=== PATIENT | female | born 1960 | race Caucasian/White ===

== ENCOUNTER 2018-02-27 10:27 | Inpatient (IN) ==
[2018-02-27] MEDS ORDERED: 0.9 % Sodium Chloride 1,000 ML IVC ONE (10:33)
[2018-02-27] MEDS ORDERED: Isovue-370 500 ML INFUS..BTL IV ONE (10:45)
--- NOTE | 2018-02-27 11:01 | Emergency Department Note ---
Disposition Clinical Impression: Diverticulitis large intestine Qualifiers: Diverticulitis bleeding: unspecified bleeding status Diverticulitis complication: without perforation or abscess Qualified Code(s): K57.32 - Diverticulitis of large intestine without perforation or abscess without bleeding Disposition: Admitted As Inpatient Condition: Fair Referrals: Cherelle Burrows MD [Primary Care Provider] - Time of Disposition: 12:22 Nausea/Vomiting/Diarrhea HPI - General Chief complaint: ED Nausea/Vomiting/Diarrhea Stated complaint: Dehydration Time Seen by Provider: 02/27/18 10:31 Source: patient Mode of arrival: ambulatory Limitations: no limitations Nursing Notes Reviewed: Yes Vital Signs Reviewed: Yes - History of Present Illness HPI Narrative: 57 year old obese white female with history of hypertension and hyperlipidemia presents for "diarrhea and dehydration". Patient states 5 days ago she thinks she ate something funny and gassy. 2 days later, gassiness worsened and started having diarrhea. After any oral intake, has crampy low abdominal pain and has bowel movement half an hour later. Yesterday patient had a large bowel movement that relieved pain from LLQ abdomen, pain is now restricted to the infraumbilical region. Today she woke up with chapped lips and feels dehydrated. She vomited this morning but does not believe it is related to her diarrhea, denies nausea. Patient reports fever of 101. She went to urgent care and got sent to the ED. Pain ranges from 0 to a 10 out of 10 and feels like a premenstrual cramp. Pain is relieved after making bowel movement. Patient has been sipping Gatorade, water, beef broth. Patient has no appetite and has not been taking any solid foods. Patient reports a 6 pound weight loss in the past 2 days. Reports urine is darker, denies blood in stool. Denies chills, swelling, numbness, tingling, headache, sore throat, cough. 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 Has had no recent hospitalizations or antibiotics. Has never had a colonoscopy. - Related Data Allergies Allergy/AdvReac Type Severity Reaction Status Date / Time sulfamethoxazole AdvReac Redness of Verified 12/09/15 12:54 [From Bactrim] Skin trimethoprim [From Bactrim] AdvReac Redness of Verified 12/09/15 12:54 Skin All systems ED: reviewed and negative except as stated. Past Medical History - Past Medical History Medical history: Reports: hyperlipidemia, hypertension Psychiatric history: Reports: no psych history - Social History Smoking Status: Never smoker Smokeless Tobacco Status: No Alcohol use: Reports: none Drug use: Reports: none Physical Exam - General Limitations: no limitations General appearance: alert, in no apparent distress - Eye Eye exam: Present: normal appearance, PERRL, EOMI - Neck Neck exam: Present: normal inspection, full ROM, trachea midline - Chest Chest inspection: Present: normal inspection, symmetric chest wall rise - Respiratory Respiratory exam: Present: normal lung sounds bilaterally. Absent: respiratory distress - Cardiovascular Cardiovascular exam: Present: regular rate, normal rhythm, normal heart sounds - Abdominal Exam Abdominal exam: Present: soft, tenderness, normal bowel sounds. Absent: distention, guarding, rebound, rigidity, bruit Abdominal tenderness: Present: suprapubic - Extremities Exam Extremities exam: Present: normal inspection, full ROM. Absent: tenderness, pedal edema - Neurological Exam Neurological exam: Present: alert, oriented X3, CN II-XII intact - Psychiatric Psychiatric exam: Present: normal affect, normal mood - Skin Skin exam: Present: warm, dry, intact, normal color Course Course Narrative: 57-year-old female presents for diarrhea, crampy low abdominal pain, and dehydration for 2 days. Worse with oral intake, better with bowel movement. Patient is alert and oriented and of nontoxic appearance. Afebrile, heart rate elevated 117. On exam, patient is tender to palpation over the suprapubic area. Will provide IV fluids. Will order sepsis workup and CT abdomen/pelvis and obtain stool sample. - Reevaluation(s) Reevaluation #1: WBC elevated 16.5. Otherwise, labwork negative. CT abd/pelvis reveals acute sigmoid diverticulitis, without perforation or abscess. Will start patient on Flagyl and Cipro, and admit patient. Spoke with hospitalist Dr. Atkins who agrees to admit. Time: 12:21 Vital Signs Temperature 98.2 F 02/27/18 10:28 Pulse Rate 127 02/27/18 10:28 Respiratory Rate 16 02/27/18 10:28 Blood Pressure 114/75 02/27/18 10:28 O2 Sat by Pulse Oximetry 96 02/27/18 10:28 Temperature 98.2 F 02/27/18 10:28 Pulse Rate 127 02/27/18 10:28 Respiratory Rate 16 02/27/18 10:28 Blood Pressure 114/75 02/27/18 10:28 O2 Sat by Pulse Oximetry 96 02/27/18 10:28 Oxygen Delivery Oxygen Delivery Room Air Nausea/Vomiting/Diarrhea - Medical Records Medical records reviewed: Yes I reviewed the patient's medical records. - Lab Data Lab results reviewed: Yes I reviewed the patient's lab results. - Radiology Data Radiology results reviewed: Yes I reviewed the patient's radiology results. CT abd/pelvis 02/27/2018 1. Findings consistent with acute sigmoid diverticulitis. No evidence of perforation. Follow-up to resolution is recommended to exclude an underlying mass. 2. Mildly prominent loops of small bowel in the left mid abdomen which is likely reactive in etiology. 3. Small amount of free fluid in the pelvis, likely reactive in etiology. Findings were discussed with Dr. Yeboah At 12:08 pm on 02/27/2018. - EKG Data EKG attestation: Yes I reviewed and interpreted this EKG. EKG results narrative: EKG 02/27/2018 10:51. Sinus rhythm. Heart rate 117. No ST segment elevation or depression. No comparison EKG.
[2018-02-27 11:04] LABS: Basophils % 0.2 %; Eosinophils # 0.3 K/mcL (0.0-0.6); Eosinophils % 1.7 %; Hematocrit 45.6 % (35.3-44.9); Immature Granulocytes % 0.4 % (0-4); Lymphocytes # 1.5 K/mcL (0.6-4.6); Mean Corpuscular HGB Conc 32.9 g/dL (31.6-35.5); Mean Corpuscular Hemoglobin 29.3 pg (28.0-33.3); Mean Corpuscular Volume 89.1 fL (83.0-100.0); Mean Platelet Volume 9.8 fL (9.4-12.4); Monocytes # 1.1 K/mcL (0.0-1.3); Monocytes % 6.6 %; Platelet Count 228 K/mcL (140-400); Red Blood Count 5.12 M/mcL (3.82-4.97); Red Cell Distribution Width 12.4 % (11.5-14.5); Segmented Neutrophils % 82.1 %
[2018-02-27 11:16] LABS: Neutrophils # 13.6 K/mcL (1.6-8.9)
[2018-02-27 11:22] LABS: INR 1.2
[2018-02-27 11:23] LABS: Alanine Aminotransferase 43 Units/L (7-52); Albumin 4.2 g/dL (3.5-5.7); Albumin/Globulin Ratio 1.2 (1.1-2.2); Alkaline Phosphatase 49 Units/L (34-104); Aspartate Amino Transferase 16 Units/L (13-39); BUN/Creatinine Ratio 33 (6-26); Bilirubin,Direct 0.3 mg/dL (0.0-0.2); Bilirubin,Indirect 0.4 mg/dL (0.0-1.2); Bilirubin,Total 0.7 mg/dL (0.3-1.0); Blood Urea Nitrogen 18 mg/dL (6-20); Calcium 10.4 mg/dL (8.6-10.3); Carbon Dioxide 18 mEq/L (23-29); Chloride 103 mEq/L (98-107); Globulin 3.4 g/dL (2.4-3.5); Glucose 115 mg/dL (70-105); Osmolality,Calculated 287 (280-300); Phosphorous 5.2 mg/dL (2.7-4.5); Potassium 4.3 mEq/L (3.5-5.1); Sodium 137 mEq/L (136-145); Total Protein 7.6 g/dL (6.4-8.9); Troponin I < 0.03 ng/mL (< 0.04); eGFR For Non-African Americans > 60 (> 60)
[2018-02-27 11:25] LABS: Activated Partial Thrombo Time 31.6 Seconds (26.0-36.0)
--- NOTE | 2018-02-27 11:49 | Emergency Department Note ---
Disposition Clinical Impression: Diarrhea Qualifiers: Diarrhea type: unspecified type Qualified Code(s): R19.7 - Diarrhea, unspecified Disposition: Still a Patient Forms: ED Satisfaction Letter General Adult HPI - General Chief complaint: ED Nausea/Vomiting/Diarrhea Stated complaint: Dehydration Time Seen by Provider: 02/27/18 10:31 Source: patient Mode of arrival: ambulatory Limitations: no limitations - History of Present Illness Pain Scale: 6 - Related Data Allergies Allergy/AdvReac Type Severity Reaction Status Date / Time sulfamethoxazole AdvReac Redness of Verified 12/09/15 12:54 [From Bactrim] Skin trimethoprim [From Bactrim] AdvReac Redness of Verified 12/09/15 12:54 Skin Past Medical History - Past Medical History Medical history: Reports: hyperlipidemia, hypertension Psychiatric history: Reports: no psych history - Social History Smoking Status: Never smoker Smokeless Tobacco Status: No Alcohol use: Reports: none Drug use: Reports: none Physical Exam - General Limitations: no limitations General appearance: alert, in no apparent distress Course Vital Signs Temperature 98.2 F 02/27/18 10:28 Pulse Rate 127 02/27/18 10:28 Respiratory Rate 16 02/27/18 10:28 Blood Pressure 114/75 02/27/18 10:28 O2 Sat by Pulse Oximetry 96 02/27/18 10:28 Temperature 98.2 F 02/27/18 10:28 Pulse Rate 127 02/27/18 10:28 Respiratory Rate 16 02/27/18 10:28 Blood Pressure 114/75 02/27/18 10:28 O2 Sat by Pulse Oximetry 96 02/27/18 10:28 Oxygen Delivery Oxygen Delivery Room Air Medical Decision Making - Lab Data Result diagrams: 02/27/18 10:49 02/27/18 10:49 Lab Results 02/27/18 02/27/18 02/27/18 Range/Units 10:49 10:49 10:49 WBC 16.5 H (4.3-11.1) K/mcL RBC 5.12 H (3.82-4.97) M/mcL Hgb 15.0 (11.5-15.4) g/dL Hct 45.6 H (35.3-44.9) % MCV 89.1 (83.0-100.0) fL MCH 29.3 (28.0-33.3) pg MCHC 32.9 (31.6-35.5) g/dL RDW 12.4 (11.5-14.5) % Plt Count 228 (140-400) K/mcL MPV 9.8 (9.4-12.4) fL Immature Gran % 0.4 (0-4) % Seg Neutrophils % 82.1 % Lymphocytes % 9.0 % Monocytes % 6.6 % Eosinophils % 1.7 % Basophils % 0.2 % Neutrophils # 13.6 H (1.6-8.9) K/mcL Lymphocytes # 1.5 (0.6-4.6) K/mcL Monocytes # 1.1 (0.0-1.3) K/mcL Eosinophils # 0.3 (0.0-0.6) K/mcL Basophils # 0.0 (0.0-0.2) K/mcL PT 13.0 H (9.4-12.1) Seconds INR 1.2 APTT 31.6 (26.0-36.0) Seconds Sodium 137 (136-145) mEq/L Potassium 4.3 (3.5-5.1) mEq/L Chloride 103 (98-107) mEq/L Carbon Dioxide 18 L (23-29) mEq/L BUN 18 (6-20) mg/dL Creatinine 0.55 L (0.60-1.20) mg/dL Est GFR ( Amer) > 60 (> 60) Est GFR (Non-Af Amer) > 60 (> 60) BUN/Creatinine Ratio 33 H (6-26) Glucose 115 H (70-105) mg/dL Calculated Osmolality 287 (280-300) Lactic Acid (0.5-2.2) mmol/L Calcium 10.4 H (8.6-10.3) mg/dL Phosphorus 5.2 H (2.7-4.5) mg/dL Magnesium 2.0 (1.6-2.6) mg/dL Total Bilirubin 0.7 (0.3-1.0) mg/dL Direct Bilirubin 0.3 H (0.0-0.2) mg/dL Indirect Bilirubin 0.4 (0.0-1.2) mg/dL AST 16 (13-39) Units/L ALT 43 (7-52) Units/L Alkaline Phosphatase 49 (34-104) Units/L Troponin I < 0.03 (< 0.04) ng/mL Serum Total Protein 7.6 (6.4-8.9) g/dL Albumin 4.2 (3.5-5.7) g/dL Globulin 3.4 (2.4-3.5) g/dL Albumin/Globulin Ratio 1.2 (1.1-2.2) 02/27/18 Range/Units 10:49 WBC (4.3-11.1) K/mcL RBC (3.82-4.97) M/mcL Hgb (11.5-15.4) g/dL Hct (35.3-44.9) % MCV (83.0-100.0) fL MCH (28.0-33.3) pg MCHC (31.6-35.5) g/dL RDW (11.5-14.5) % Plt Count (140-400) K/mcL MPV (9.4-12.4) fL Immature Gran % (0-4) % Seg Neutrophils % % Lymphocytes % % Monocytes % % Eosinophils % % Basophils % % Neutrophils # (1.6-8.9) K/mcL Lymphocytes # (0.6-4.6) K/mcL Monocytes # (0.0-1.3) K/mcL Eosinophils # (0.0-0.6) K/mcL Basophils # (0.0-0.2) K/mcL PT (9.4-12.1) Seconds INR APTT (26.0-36.0) Seconds Sodium (136-145) mEq/L Potassium (3.5-5.1) mEq/L Chloride (98-107) mEq/L Carbon Dioxide (23-29) mEq/L BUN (6-20) mg/dL Creatinine (0.60-1.20) mg/dL Est GFR ( Amer) (> 60) Est GFR (Non-Af Amer) (> 60) BUN/Creatinine Ratio (6-26) Glucose (70-105) mg/dL Calculated Osmolality (280-300) Lactic Acid 1.0 (0.5-2.2) mmol/L Calcium (8.6-10.3) mg/dL Phosphorus (2.7-4.5) mg/dL Magnesium (1.6-2.6) mg/dL Total Bilirubin (0.3-1.0) mg/dL Direct Bilirubin (0.0-0.2) mg/dL Indirect Bilirubin (0.0-1.2) mg/dL AST (13-39) Units/L ALT (7-52) Units/L Alkaline Phosphatase (34-104) Units/L Troponin I (< 0.04) ng/mL Serum Total Protein (6.4-8.9) g/dL Albumin (3.5-5.7) g/dL Globulin (2.4-3.5) g/dL Albumin/Globulin Ratio (1.1-2.2) Attestation Statement - Attestation Attestation: I examined this patient and my medical decision-making was reviewed with the Resident Physician. I agree with the documented findings, disposition and treatment plan as described except to the extent set forth below. 57 yea malenad female prsentse to the ED with complaints of yellow loose diarrhea and watery and states that this has been going on saturday and everytime she pases stool she has pain in the lower abdomen and now she is havign difficulty with keeping down PO because of nausea but has not vomitted. PAtinet states that this is a first time occurance and most recently think she may have had suspicious food althouh she denies bloody diaarhea. PAtinet states that she feels dehydrated and she is tachycardiac to 120 normal sinnus rhythm. My concern is for colitis infectious etiology. She has a WBC of 16. Low exposure to c.diff. IVF and possible IV ABX
[2018-02-27] MEDS ORDERED: MetroNIDAZOLE 500 MG/100 ML 500 MG/100 ML BAG IVPB ONE (12:10)
--- NOTE | 2018-02-27 13:15 | Internal Med History&Physical ---
Date of Encounter: 02/27/18 Time of Encounter: 13:12 Internal Medicine - H&P: HPI Chief complaint: DIARRHEA X 2 DAYS Admitted From: Emergency Dept Plans for Post Hospital Care: Home History of present illness: Ms. Bowles is a 57 year old female Patient with history of hypertension, high cholesterol, presented to emergency room with 2 days of diarrhea , lower abdominal pain stated she had about 6 pound weight loss with poor appetite diarrhea is nonbloody evaluation in the ER blood pressure 114/70 pulse 127 sinus tach she is afebrile white count was 16 ,000 CT of the abdomen and pelvis shows sigmoid diverticulitis patient started on Cipro and Flagyl and will be admitted for further treatment. Past Med Surg Social Fam HX - Past Medical History Medical history: hyperlipidemia, hypertension Psychiatric history: no psych history - Social History Smoking Status: Never smoker Smokeless Tobacco Status: No Alcohol use: none Drug use: none Internal Medicine - H&P: Meds Cholecalciferol (D-3) [Vitamin D] 5,000 unit PO DAILY 02/27/18 [History] Krill/Om-3/Dha/Epa/Phospho/Ast [Krill Oil 1,000 mg Softgel] 1 cap PO HS [History] Magnesium Oxide [Magnesium] 400 mg PO HS 02/27/18 [History] Multivitamin [One Daily Essential] 1 tab PO HS 02/27/18 [History] Olmesartan Medoxomil [Olmesartan Medoxomil] 20 mg PO HS 02/27/18 [History] Pravastatin Sodium [Pravastatin Sodium] 10 mg PO HS 02/27/18 [History] 3 Allergy/AdvReac Type Severity Reaction Status Date / Time sulfamethoxazole AdvReac Redness of Verified 02/27/18 12:22 [From Bactrim] Skin trimethoprim [From Bactrim] AdvReac Redness of Verified 02/27/18 12:22 Skin All Systems PM: A 10-system review of systems was performed and is negative for pertinent findings except as documented above in the HPI. - Constitutional Vitals: Temp Pulse Resp BP Pulse Ox 98.2 F 112 15 162/92 99 02/27/18 10:28 02/27/18 13:04 02/27/18 13:04 02/27/18 13:04 02/27/18 13:04 General appearance: Present: obese - Eye Eye exam: Present: PERRL, conjuntiva pink, sclera anicteric Pupils: Present: PERRL - Neck Neck exam general surgery: Present: supple, trachea midline. Absent: lymphadenopathy - Respiratory Respiratory exam: Present: CTAB. Absent: accessory muscle use, rales, rhonchi, wheezes - Cardiovascular Cardiovascular exam: Present: RRR, tachycardia - GI/Abdominal GI/Abdominal exam: Present: normal bowel sounds, soft, no peritoneal signs. Absent: distended Internal Med - H&P Results - Labs CBC & Chem 7: 02/27/18 10:49 02/27/18 10:49 - Assessment and plan (1) Leukocytosis Current Visit: Yes Status: Acute Assessment and plan: Leukocytosis secondary to acute infection Qualifiers: Leukocytosis type: bandemia Qualified Code(s): D72.825 - Bandemia (2) Diarrhea Current Visit: Yes Status: Acute Assessment and plan: Secondary to diverticulitis Qualifiers: Diarrhea type: unspecified type Qualified Code(s): R19.7 - Diarrhea, unspecified (3) Diverticulitis large intestine Current Visit: Yes Status: Acute Assessment and plan: We will start patient on Cipro and Flagyl Qualifiers: Diverticulitis bleeding: without bleeding Diverticulitis complication: without perforation or abscess Qualified Code(s): K57.32 - Diverticulitis of large intestine without perforation or abscess without bleeding (4) Dehydration Current Visit: No Status: Acute Assessment and plan: Secondary to diarrhea - Time Spent With Patient Total time spent is greater than 50% in coordination of care (as documented) at patient's floor/unit and/or counseling patient:
[2018-02-27] MEDS ORDERED: Acetaminophen 325 MG TABLET PO PRN (13:23)
[2018-02-27] MEDS ORDERED: traMADol 50 MG TABLET PO PRN (13:23)
[2018-02-27] MEDS ORDERED: Naloxone 0.4 MG/ML INJ IVP PRN (13:23)
[2018-02-27] MEDS: 0.9 % Sodium Chloride 1,000 ML IVC SCH (14:40)
--- NOTE | 2018-02-27 19:54 | Electrocardiograph Report ---
[facility] Test Date: 2018-02-27 Pat Name: Tatum Bowles Department: 103 Room: 3A16 Gender: F Internal Medicine Veterinary Technician: GRACE : 1960 Requested By: William Quiroz Order Number: [id number] Reading MD: Asnhul Cooper Measurements Intervals [place] Rate: 117 P: -1 KS: 143 QRS: 4 QRSD: 66 T: 44 QT: 354 QTc: 424 Interpretive Statements SINUS TACHYCARDIA WITH OCCASIONAL SUPRAVENTRICULAR PREMATURE COMPLEXES NONSPECIFIC T-WAVE ABNORMALITY ABNORMAL RHYTHM ECG Electronically Signed On 02-27-2018 19:53:11 EDT by Anshul Cooper
[2018-02-27] MEDS: MetroNIDAZOLE 500 MG/100 ML 500 MG/100 ML BAG IVPB SCH (20:31)
[2018-02-27] MEDS: Magnesium Oxide 400 MG TABLET PO SCH (20:31)
[2018-02-27] MEDS: Multivit/Ca/Min/Fe/FA 1 TAB TABLET PO SCH (20:31)
[2018-02-27] MEDS ORDERED: NON-FORMULARY MEDICATION 1 EACH EACH (Krill/Om-3/Dha/Epa/Phospho/Ast [Krill Oil 1,000 Mg S PO SCH (21:00)
[2018-02-28] MEDS: 0.9 % Sodium Chloride 1,000 ML IVC SCH (03:46)
[2018-02-28 05:15] LABS: Hematocrit 37.5 % (35.3-44.9); Mean Corpuscular HGB Conc 32.3 g/dL (31.6-35.5); Mean Corpuscular Hemoglobin 28.1 pg (28.0-33.3); Mean Corpuscular Volume 87.2 fL (83.0-100.0); Platelet Count 185 K/mcL (140-400); Red Cell Distribution Width 12.5 % (11.5-14.5)
[2018-02-28 05:16] LABS: Hemoglobin 12.1 g/dL (11.5-15.4)
[2018-02-28] MEDS: *HR* Enoxaparin 40 MG/0.4 ML SYRINGE SQ SCH (05:28)
[2018-02-28] MEDS: MetroNIDAZOLE 500 MG/100 ML 500 MG/100 ML BAG IVPB SCH ×3 (05:28→22:30)
[2018-02-28 07:04] LABS: Alanine Aminotransferase 30 Units/L (7-52); Albumin 3.2 g/dL (3.5-5.7); Albumin/Globulin Ratio 1.2 (1.1-2.2); Alkaline Phosphatase 40 Units/L (34-104); Aspartate Amino Transferase 18 Units/L (13-39); BUN/Creatinine Ratio 44 (6-26); Bilirubin,Total 0.6 mg/dL (0.3-1.0); Blood Urea Nitrogen 16 mg/dL (6-20); Calcium 8.9 mg/dL (8.6-10.3); Carbon Dioxide 15 mEq/L (23-29); Chloride 111 mEq/L (98-107); Cholesterol 99 mg/dL (< 200); Globulin 2.7 g/dL (2.4-3.5); Glucose 131 mg/dL (70-105); HDL Cholesterol 33 mg/dL (40-59); LDL Cholesterol,Calculated 55 mg/dL (0-99); Magnesium 1.8 mg/dL (1.6-2.6); Osmolality,Calculated 293 (280-300); Potassium 4.1 mEq/L (3.5-5.1); Sodium 140 mEq/L (136-145); Total Protein 5.9 g/dL (6.4-8.9); Triglycerides 54 mg/dL (< 150); eGFR For Non-African Americans > 60 (> 60)
[2018-02-28] MEDS: Cholecalciferol (D-3) 1,000 UNIT TABLET PO SCH (08:23)
--- NOTE | 2018-02-28 12:41 | Internal Med Progress Note ---
Hospitalist Progress Note - Encounter Date of Encounter: 02/28/18 Time of Encounter: 08:30 - Subjective Interval History: Patient is feeling much better today. She continues to have some cramping in her lower abdomen especially that improves after she has a bowel movement. No blood in her stools. No nausea or vomiting. No fever this morning. - Exam Vitals: Temp Pulse Resp BP Pulse Ox 98.6 F 105 16 106/57 98 02/28/18 11:42 02/28/18 11:42 02/28/18 11:42 02/28/18 11:42 02/28/18 11:42 Exam: General: Patient is alert, no acute distress, oriented x 3 Head: atraumatic, normocephalic, ENT: mucous membranes moist, normal external ear exam Neck: normal inspection, trachea midline, full ROM, no carotid bruits Chest: normal inspection, symmetric chest rise Respiratory: Good respiratory effort. Normal breath sounds. No wheezing or crackles.. Cardiovascular: Regular rate and rhythm. s1 and s2 No clicks, rubs, gallops, or murmurs. No pedal edema Abdomen: Abdomen is soft, lower abdominal tenderness. Bowel sounds are present Musculoskeletal: Spontaneously moving all extremities. Skin: warm, dry, intact. Neuro: Alert oriented x 3 normal cranial nerves, no focal deficits Psych: Patient's affect is normal - Assessment and Plan (1) Diverticulitis large intestine Current Visit: Yes Status: Acute Assessment and Plan: Acute diverticulitis sigmoid colon. Continue supportive care. Start clear liquid diet as patient's symptoms are improving. Continue IV antibiotics. His symptoms continue to improve, plan on discharge tomorrow. Moderate risk for complications (2) Hyperlipidemia Current Visit: Yes Status: Acute Assessment and Plan: Continue statin (3) Hypertension Current Visit: Yes Status: Chronic Assessment and Plan: Blood pressure is well controlled - Time Spent with Patient Total time spent is greater than 50% in coordination of care (as documented) at patient's floor/unit and/or counseling patient: Internal Medicine: Result - Labs CBC & Chem 7: 02/28/18 04:25 02/28/18 06:35 Labs: Short CBC 02/28/18 Range/Units 04:25 WBC 10.8 (4.3-11.1) K/mcL Hgb 12.1 D (11.5-15.4) g/dL Hct 37.5 (35.3-44.9) % Plt Count 185 (140-400) K/mcL BMP 02/28/18 06:35 Sodium 140 Potassium 4.1 Chloride 111 H Carbon Dioxide 15 L BUN 16 Creatinine 0.36 L Glucose 131 H Calcium 8.9 Liver Function 02/28/18 Range/Units 06:35 Total Bilirubin 0.6 (0.3-1.0) mg/dL AST 18 (13-39) Units/L ALT 30 (7-52) Units/L Alkaline Phosphatase 40 (34-104) Units/L Albumin 3.2 L (3.5-5.7) g/dL - ABG Interpretation ABG results: PT/INR, D-dimer PT 13.0 Seconds (9.4-12.1) H 02/27/18 10:49 Consult Discharge Plan - Plan Referrals: Cherelle Burrows MD [Primary Care Provider] - (1) Diverticulitis large intestine Qualifiers: Diverticulitis bleeding: without bleeding Diverticulitis complication: without perforation or abscess Qualified Code(s): K57.32 - Diverticulitis of large intestine without perforation or abscess without bleeding (2) Hyperlipidemia Qualifiers: Hyperlipidemia type: mixed hyperlipidemia Qualified Code(s): E78.2 - Mixed hyperlipidemia (3) Hypertension Qualifiers: Hypertension type: essential hypertension Qualified Code(s): I10 - Essential (primary) hypertension
[2018-02-28] MEDS ORDERED: Ringers Solution, Lactated 1,000 ML IVC SCH (13:00)
[2018-02-28] MEDS: Magnesium Oxide 400 MG TABLET PO SCH (22:30)
[2018-02-28] MEDS: Multivit/Ca/Min/Fe/FA 1 TAB TABLET PO SCH (22:31)
[2018-03-01] MEDS: MetroNIDAZOLE 500 MG/100 ML 500 MG/100 ML BAG IVPB SCH ×2 (04:20→12:44)
[2018-03-01] MEDS: *HR* Enoxaparin 40 MG/0.4 ML SYRINGE SQ SCH (05:32)
[2018-03-01 06:28] LABS: Basophils % 0.3 %; Eosinophils # 0.6 K/mcL (0.0-0.6); Eosinophils % 5.4 %; Hematocrit 40.2 % (35.3-44.9); Hemoglobin 13.1 g/dL (11.5-15.4); Immature Granulocytes % 0.3 % (0-4); Lymphocytes % 18.5 %; Mean Corpuscular HGB Conc 32.6 g/dL (31.6-35.5); Mean Corpuscular Hemoglobin 28.2 pg (28.0-33.3); Mean Corpuscular Volume 86.6 fL (83.0-100.0); Mean Platelet Volume 10.2 fL (9.4-12.4); Monocytes % 8.8 %; Neutrophils # 7.2 K/mcL (1.6-8.9); Platelet Count 226 K/mcL (140-400); Red Blood Count 4.64 M/mcL (3.82-4.97); Red Cell Distribution Width 12.4 % (11.5-14.5); Segmented Neutrophils % 66.7 %
[2018-03-01 06:49] LABS: BUN/Creatinine Ratio 33 (6-26); Blood Urea Nitrogen 11 mg/dL (6-20); Calcium 9.2 mg/dL (8.6-10.3); Carbon Dioxide 21 mEq/L (23-29); Chloride 108 mEq/L (98-107); Glucose 117 mg/dL (70-105); Osmolality,Calculated 290 (280-300); Potassium 3.4 mEq/L (3.5-5.1); Sodium 140 mEq/L (136-145); eGFR For Non-African Americans > 60 (> 60)
[2018-03-01] MEDS: Cholecalciferol (D-3) 1,000 UNIT TABLET PO SCH (09:14)
--- NOTE | 2018-03-01 10:24 | Discharge Summary ---
- NOTES TO OUTPATIENT PROVIDER Notes to Outpatient Provider: Patient was hospitalized with acute sigmoid diverticulitis. She was kept nothing by mouth and treated with IV fluids and antibiotics. As her symptoms improved, her diet has been advanced. She is feeling much better today and will be discharged later today if she tolerates advance diet . Recommend outpatient follow with GI or surgery for colonoscopy Date of Encounter: 03/01/18 Time of Encounter: 10:22 - Discharge Diagnosis (1) Diverticulitis large intestine Priority: Primary Status: Acute Qualifiers: Diverticulitis bleeding: without bleeding Diverticulitis complication: without perforation or abscess Qualified Code(s): K57.32 - Diverticulitis of large intestine without perforation or abscess without bleeding (2) Hyperlipidemia Priority: Secondary Status: Acute Qualifiers: Hyperlipidemia type: mixed hyperlipidemia Qualified Code(s): E78.2 - Mixed hyperlipidemia (3) Hypertension Priority: Secondary Status: Chronic Qualifiers: Hypertension type: essential hypertension Qualified Code(s): I10 - Essential (primary) hypertension Hospital course: Ms. Bowles is a 57 year old female Patient with history of hyperlipidemia, hypertension who was hospitalized with acute sigmoid diverticulitis. She was kept nothing by mouth and treated with IV fluids and antibiotics. As her symptoms improved, her diet has been advanced. She is feeling much better today and will be discharged later today if she tolerates advance diet . Recommend outpatient follow with GI or surgery for colonoscopy Discharge discussed with: patient, nurse - Time Spent with Patient Total time spent providing and/or coordinating discharge services: Greater than 30 minutes (32 min) - Discharge Medications Prescriptions: Ciprofloxacin [Cipro] 500 mg PO BID #14 tablet Lactobacillus [Culturelle] 1 each PO BID #20 cap.sprink metroNIDAZOLE [Flagyl] 500 mg PO TID #21 tablet Home Medications: Cholecalciferol (D-3) [Vitamin D] 5,000 unit PO DAILY 02/27/18 [History] Krill/Om-3/Dha/Epa/Phospho/Ast [Krill Oil 1,000 mg Softgel] 1 cap PO HS [History] Magnesium Oxide [Magnesium] 400 mg PO HS 02/27/18 [History] Multivitamin [One Daily Essential] 1 tab PO HS 02/27/18 [History] Olmesartan Medoxomil 20 mg PO HS 02/27/18 [History] Pravastatin Sodium 10 mg PO HS 02/27/18 [History] Ciprofloxacin [Cipro] 500 mg PO BID #14 tablet 03/01/18 [Rx] Lactobacillus [Culturelle] 1 each PO BID #20 cap.sprink 03/01/18 [Rx] metroNIDAZOLE [Flagyl] 500 mg PO TID #21 tablet 03/01/18 [Rx] Allergies/Adverse Reactions: 3 Allergy/AdvReac Type Severity Reaction Status Date / Time sulfamethoxazole AdvReac Redness of Verified 02/27/18 12:22 [From Bactrim] Skin trimethoprim [From Bactrim] AdvReac Redness of Verified 02/27/18 12:22 Skin Date of admission: 02/27/18 15:50 Primary care physician: Cherelle Burrows Discharging clinician: Silvano Vu Anticipated date of discharge: 03/01/18 - Constitutional Vitals: Temp Pulse Resp BP Pulse Ox 99 F 98 14 117/73 95 03/01/18 07:32 03/01/18 07:32 03/01/18 07:32 03/01/18 07:32 03/01/18 07:32 General appearance: Present: A&O X 3, no acute distress, obese, answers questions appropriately - Neck Neck exam general surgery: Present: supple, trachea midline. Absent: lymphadenopathy - Respiratory Respiratory exam: Present: CTAB. Absent: accessory muscle use, rales, rhonchi, wheezes - Cardiovascular Cardiovascular exam: Present: RRR, +S1, +S2. Absent: diastolic murmur, gallop, rubs, systolic murmur - GI/Abdominal GI/Abdominal exam: Present: normal bowel sounds, soft, no peritoneal signs. Absent: distended, tenderness - Patient Status Disposition: Home, Self-Care Condition: Good Functional capacity at discharge: independent ambulation Overall status at discharge: patient is progressing back to baseline - Discharge Instructions Instructions: Diverticulitis (DC), Diverticulitis Diet (DC) Follow Up With: Cherelle Burrows MD [Primary Care Provider] - (In 1-2 weeks) - Diet and Activity Activity: increase activity as tolerated Diet: advance to your usual diet
[2018-03-01 14:32] VITALS: BP 121/77
== END 2018-03-01 15:25 | disposition home or self-care (01) | DRG 392 ==
LOC: EMEROO 10:27 → 3ANU 10:27 → SUATTDRO 15:50
PROVIDERS: ADMIT Internal Medicine Cardiovascular Disease; ATTEND Internal Medicine